=== PATIENT | female | born 2000 | race African-American/Black ===

== ENCOUNTER 2021-07-31 11:10 | Emergency (ER) | payer BC, OTHER ==
[2021-07-31 12:22] LABS: Urine Blood Trace-intact (Negative); Urine Glucose Negative (Negative); Urine Protein Negative (Negative); Urine Specific Gravity >=1.030 (1.005-1.030); Urine pH 5.5 (5.0-7.0)
[2021-07-31 12:36] LABS: Urine Bacteria 20-50 /HPF (<20)
[2021-07-31 12:53] LABS: Absolute Lymphocytes (CBC) 2.2 K/uL (0.7-4.9); Basophils % 1.1 % (0-1.3); Hematocrit 35.7 % (36.0-45.0); Lymphocytes % 43.6 % (15.3-44.8); MPV 7.1 fL (7.6-11.3); RBC Red Blood Cell Count 4.23 M/uL (3.86-4.86)
[2021-07-31 12:58] LABS: ALT/SGPT 23 U/L (12-78); AST/SGOT 10 U/L (15-37); Albumin 3.3 g/dL (3.4-5.0); Alkaline Phosphatase 45 U/L (45-117); BUN Blood Urea Nitrogen 7 mg/dL (7-18); Bicarbonate 26 mmol/L (21-32); Bilirubin Direct < 0.1 mg/dL (0-0.2); Bilirubin Total 0.2 mg/dL (0.2-1.0); Glucose Level 86 mg/dL (74-106); Lipase 137 U/L (73-393); Potassium 3.7 mmol/L (3.5-5.1); Protein, Total 7.8 g/dL (6.4-8.2); Sodium Level 142 mmol/L (136-145)
[2021-07-31 14:02] LABS: Blood Morphology Comment NOTED (NOT SEEN); Ovalocytes 1+; Platelet Estimate INCR
--- NOTE | 2021-07-31 15:55 | RAD REPORT ---
EXAM DESCRIPTION: US - Transvaginal Study Probe - 07/31/2021 3:40 pm CLINICAL HISTORY: lower abdomen pain Pelvic pain. COMPARISON: No comparisons FINDINGS: The uterus is normal in size, shape and echotexture. The uterus measures 8.8 x 4.9 x 4.3 c m. The endometrial stripe measures 15 mm, normal. Both ovaries are normal in size, shape and echotexture. The right ovary measures 3.0 x 2.7 x 1.8 cm. The left ovary measures 2.3 x 2.1 x 1.5 cm. No ovarian or parovarian lesions. No adnexal masses. Normal Doppler blood flow was demonstrated to both ovaries. No significant pelvic ascites. IMPRESSION: Unremarkable study.
[2021-07-31] MEDS ORDERED: AZITHROMYCIN 1 GM PACKET ONE (16:54)
[2021-07-31] MEDS ORDERED: CEFTRIAXONE 1000 MG/VIAL ONE (16:54)
--- NOTE | 2021-07-31 17:13 | ER ---
Nurse's Notes [facility] Name: Renetta Barksdale Age: 21 yrs Sex: Female : 2000 Arrival Date: 07/31/2021 Time: 11:12 Bed 17 Private MD: Diagnosis: Female pelvic inflammatory disease, unspecified Presentation: 07/31 11:32 Chief complaint: Patient states: abd pain that began 4 days ago. Coronavirus screen: ss Client denies travel out of the [place] in the last 14 days. Ebola Screen: Patient denies exposure to infectious person. Patient denies travel to an Ebola-affected area in the 21 days before illness onset. Initial Sepsis Screen: Does the patient meet any 2 criteria? No. Patient's initial sepsis screen is negative. Does the patient have a suspected source of infection? No. Patient's initial sepsis screen is negative. Risk Assessment: Do you want to hurt yourself or someone else? Patient reports no desire to harm self or others. Onset of symptoms was July 27, 2021. 11:32 Method Of Arrival: Ambulatory ss 11:32 Acuity: FADI 3 ss Historical: - Allergies: 11:34 No Known Allergies; ss - PMHx: 11:34 None; ss - PSHx: 11:34 None; ss - Immunization history:: Client reports having NOT received the Covid vaccine. - Social history:: Smoking status: Patient denies any tobacco usage or history of. Screenin:40 Abuse screen: Denies threats or abuse. Denies injuries from another. Nutritional tc5 screening: No deficits noted. Tuberculosis screening: No symptoms or risk factors identified. Fall Risk None identified. Assessment: 17:42 General: Appears in no apparent distress. Behavior is calm, cooperative, appropriate tc5 for age, pt has multiple complaints, main one was sob, states she wants to be checked for std's as well. Vital Signs: 11:32 Pulse 87; Resp 15; Temp 98.6(TE); Pulse Ox 100% on R/A; Weight 74.3 kg; Pain 7/10; ss 17:43 BP 115 / 78; Pulse 80; Resp 14; Pulse Ox 100% ; Pain 0/10; tc5 ED Course: 11:12 Patient arrived in ED. as 11:34 Triage completed. ss 11:34 Arm band placed on right wrist. ss 11:58 Malick Ruffin PA is PHCP. cp 11:58 Malick Knowles MD is Attending Physician. cp 12:13 Urine Microscopic Only Sent. 5 12:16 Lisa Weaver, GENET is Primary Nurse. tc5 12:22 Patient has correct armband on for positive identification. Placed in gown. Bed in low mh5 position. Call light in reach. Warm blanket given. Pulse ox on. NIBP on. 12:23 Urine collected: clean catch specimen, clear. mh5 12:40 Inserted saline lock: 20 gauge in right antecubital area, using aseptic technique. tc5 Blood collected. 13:53 Assist provider with pelvic exam: Set up pelvic tray. Performed by Malick RIBEIRO 5 Specimens sent to lab. Patient tolerated well. swabs to to lab. 13:54 Wet Prep Sent. 5 13:54 GC (Stevan/Chl) Probe CX/URE Sent. mh5 13:55 Manual Differential Sent. mh5 13:55 Urine Culture Sent. mh5 13:55 CBC with Automated Diff Sent. mh5 13:56 Wet Prep Sent. mh5 13:56 Basic Metabolic Panel Sent. mh5 13:56 CBC with Diff Sent. mh5 13:56 Hepatic Function Sent. mh5 13:56 Lipase Sent. mh5 14:11 GC (GONORR/CHLAMYDIA) Probe Sent. mh5 15:40 US Transvaginal Study (Probe) In Process Unspecified. EDCO 17:09 Danielle Peck MD is Referral Physician. cp Administered Medications: 16:25 CANCELLED (Physician Discretion): Rocephin (cefTRIAXone) 250 mg IM once cp 16:33 Drug: Zithromax (azithromycin) 1 grams Route: PO; tc5 17:44 Follow up: Response: No adverse reaction tc5 16:33 Drug: Rocephin (cefTRIAXone) 1 grams Route: IV; Rate: calculated rate; Site: right tc5 antecubital; 17:44 Follow up: Response: No adverse reaction tc Outcome: 17:12 Discharge ordered by . cp 17:45 Patient left the ED. tc5 Signatures: Dispatcher [employer] EDCO Etta Jackson Shelby, RN RN Malick Ruffin PA PA cp Gela Jackson 5 Cassaboom, Lisa, RN RN tc5 Corrections: (The following items were deleted from the chart) 12:41 12:23 CORONAVIRUS+MR.LAB.BRZ drawn and sent. 5 EDCO
--- NOTE | 2021-07-31 17:13 | EDPHYS ---
Physician Documentation [facility] Name: Renetta Barksdale Age: 21 yrs Sex: Female : 2000 Arrival Date: 07/31/2021 Time: 11:12 Bed 17 Private MD: ED Physician Malick Knowles HPI: 07/31 11:29 This 21 yrs old Black Female presents to ER via Unassigned with complaints of r/o cp covid, STD Exposure. 11:30 The patient presents with vaginal discharge, vaginal odor, right lower abdominal pain. cp 11:30 Associated signs and symptoms: Pertinent negatives: constipation, diarrhea, fever, cp vaginal bleeding, vomiting. 11:30 Onset: The symptoms/episode began/occurred 4 day(s) ago. cp 11:30 Patient reports history of lower abdominal pain for past several years. Has seen cp multiple physicians in the past with no definite diagnosis. Patient reports concern for possible STD and requests testing. Would also like COVID-19 test. Denies cough, sore throat. Historical: - Allergies: 11:34 No Known Allergies; ss - PMHx: 11:34 None; ss - PSHx: 11:34 None; ss - Immunization history:: Client reports having NOT received the Covid vaccine. - Social history:: Smoking status: Patient denies any tobacco usage or history of. ROS: 11:30 Abdomen/GI: Positive for abdominal pain. cp 11:30 : Positive for vaginal odor. 11:30 Eyes: Negative for injury, pain, redness, and discharge. cp 11:30 Constitutional: Negative for body aches, chills, fever, poor PO intake. 11:30 ENT: Negative for drainage from ear(s), ear pain, sore throat, difficulty swallowing, difficulty handling secretions. 11:30 Cardiovascular: Negative for chest pain, palpitations. 11:30 Respiratory: Negative for cough, shortness of breath, wheezing. 11:30 Neuro: Negative for altered mental status, headache, weakness. 11:30 All other systems are negative. Exam: 11:29 Head/Face: Normocephalic, atraumatic. cp 11:29 Constitutional: The patient appears in no acute distress, alert, awake, comfortable, non-toxic, well developed, well nourished. 11:29 Abdomen/GI: Inspection: abdomen appears normal, Bowel sounds: active, all quadrants, Palpation: soft, in all quadrants, mild abdominal tenderness, in the right lower quadrant. 14:30 : Pelvic Exam: External exam: is normal, Speculum exam: no bleeding is noted, no cp cervicitis, os that is closed, no tissue in cervix is seen, no tissue in vagina is seen, bimanual exam reveals cervical motion tenderness, no adnexal tenderness on left, right adnexal tenderness, no adnexal mass on right, no adnexal mass on left, discharge, white, the nurse was present for the exam, Sexual behavior: the patient is sexually active. Vital Signs: 11:32 Pulse 87; Resp 15; Temp 98.6(TE); Pulse Ox 100% on R/A; Weight 74.3 kg; Pain 7/10; ss 17:43 BP 115 / 78; Pulse 80; Resp 14; Pulse Ox 100% ; Pain 0/10; tc5 MDM: 11:58 Patient medically screened. theo 13:00 Differential diagnosis: appendicitis, tae infection, cervicitis, ectopic , cp ovarian cyst, pelvic inflammatory disease, urinary tract infection, vaginosis. 17:10 Data reviewed: vital signs, nurses notes, lab test result(s), radiologic studies, cp ultrasound. 17:10 Counseling: I had a detailed discussion with the patient and/or guardian regarding: the cp historical points, exam findings, and any diagnostic results supporting the discharge/admit diagnosis, lab results, radiology results, the need for outpatient follow up, an OB/Gyne specialist, to return to the emergency department if symptoms worsen or persist or if there are any questions or concerns that arise at home. Response to treatment: the patient's symptoms have mildly improved after treatment, and as a result, I will discharge patient. Special discussion: Based on the patient's Hx, exam, and Dx evaluation, there is no indication for emergent surgery or inpatient Tx. It is understood by the patient/guardian that if the Sx's persist or worsen they need to return immediately for re-evaluation. 07/31 12:06 Order name: Basic Metabolic Panel cp 07/31 12:06 Order name: CBC with Diff cp 07/31 12:06 Order name: Hepatic Function cp 07/31 12:06 Order name: Lipase cp 07/31 12:06 Order name: GC (GONORR/CHLAMYDIA) Probe cp 07/31 12:06 Order name: Wet Prep 07/31 12:06 Order name: Urine Microscopic Only; Complete Time: 13:49 07/31 15:34 Interpretation: Normal except: URBC 5-10; UBACT 20-50; SQEPI 5-10. 07/31 12:06 Order name: Basic Metabolic Panel; Complete Time: 13:49 EDMS 07/31 15:34 Interpretation: Normal except: CL 109. 07/31 12:06 Order name: CBC with Automated Diff; Complete Time: 15:33 EDMS 07/31 15:33 Interpretation: Normal except: HGB 11.8; HCT 35.7; MPV 7.1; HOLGER% 35.8; EOSINOPHIL % 7.9. 07/31 12:06 Order name: Liver (Hepatic) Function; Complete Time: 13:49 EDMS 07/31 15:34 Interpretation: Normal except: AST 10; ALB 3.3; GLOB 4.5; A/G 0.7. 07/31 12:06 Order name: Lipase; Complete Time: 13:49 EDMS 07/31 12:06 Order name: GC (Stevan/Chl) Probe CX/URE EDAR 07/31 12:06 Order name: Wet Prep; Complete Time: 15:33 EDMS 07/31 12:06 Order name: IV Saline Lock; Complete Time: 13:56 07/31 12:06 Order name: Labs collected and sent; Complete Time: 13:56 07/31 12:06 Order name: Pelvic Exam Setup; Complete Time: 12:23 07/31 12:06 Order name: Urine Dipstick-Ancillary (obtain specimen); Complete Time: 12:13 07/31 12:06 Order name: Urine Test (obtain specimen); Complete Time: 12:13 07/31 12:21 Order name: Urine Dipstick-Ancillary; Complete Time: 13:49 EDMS 07/31 12:31 Order name: Urine --Ancillary (enter results); Complete Time: 13:49 eb 07/31 12:36 Order name: Urine Culture EDAR 07/31 12:41 Order name: SARS-COV-2 RT PCR; Complete Time: 13:49 EDMS 07/31 13:11 Order name: Manual Differential; Complete Time: 15:33 EDMS 07/31 15:34 Interpretation: Reviewed. cp 07/31 13:49 Order name: US Transvaginal Study (Probe); Complete Time: 16:26 cp Administered Medications: 16:25 CANCELLED (Physician Discretion): Rocephin (cefTRIAXone) 250 mg IM once cp 16:33 Drug: Zithromax (azithromycin) 1 grams Route: PO; tc5 17:44 Follow up: Response: No adverse reaction tc5 16:33 Drug: Rocephin (cefTRIAXone) 1 grams Route: IV; Rate: calculated rate; Site: right tc5 antecubital; 17:44 Follow up: Response: No adverse reaction tc5 Disposition Summary: 07/31/21 17:12 Discharge Ordered Location: Home cp Problem: new cp Symptoms: have improved cp Condition: Stable cp Diagnosis - Female pelvic inflammatory disease, unspecified cp Followup: cp - With: Danielle Peck MD - When: 1 week - Reason: Recheck today's complaints Discharge Instructions: - Discharge Summary Sheet cp - Pelvic Inflammatory Disease cp - Pelvic Pain, Female cp Forms: - Medication Reconciliation Form cp - Thank You Letter cp - Antibiotic Education cp - Prescription Opioid Use cp - Work release form tc5 Prescriptions: - Naprosyn 500 mg Oral Tablet - take 1 tablet by ORAL route 2 times per day take with food; 20 tablet; Refills: cp 0, Product Selection Permitted - Doxycycline Hyclate 100 mg Oral Tablet - take 1 tablet by ORAL route every 12 hours; 20 tablet; Refills: 0, Product cp Selection Permitted - Metronidazole 500 mg Oral Tablet - take 1 tablet by ORAL route every 8 hours; 30 tablet; Refills: 0, Product cp Selection Permitted Addendum: 08/03/2021 10:25 Co-signature as Attending Physician, Malick Knowles MD I agree with the assessment and c [place] plan of care. Signatures: Dispatcher [employer] Malick Davenport MD MD cha Smirch, Shelby RN RN Malick Mckeon PA PA cp Lisa Weaver RN RN tc5 Corrections: (The following items were deleted from the chart) 07/31 12:41 12:06 CORONAVIRUS+LAB.BRZ ordered. EDMS EDMS 16:25 13:49 Rocephin (cefTRIAXone) 250 mg IM once ordered. cp cp
[2021-07-31 18:08] VITALS: TEMP 98.6; O2SAT 100
[2021-07-31 18:09] VITALS: BP 115/78
[2021-08-04 08:13] LABS: C.trachomatis RNA,TMA Detected (Not Detected)
== END 2021-07-31 17:45 | disposition home or self-care (01) ==
LOC: ER 11:10
DX: N73.9 Female pelvic inflammatory disease, unspecified (principal); Z20.822 Contact with and (suspected) exposure to COVID-19
CPT/HCPCS: 87088; 85025; 87086; 80048; 36415; 81025; 80076; 87210; 83690; 87590; 87490; 76830; 96374; 99284; U0003; 81003; 81015

== ENCOUNTER 2021-09-18 10:22 | Emergency (ER) | payer BC, OTHER ==
[2021-09-18 13:07] LABS: SARS-COV-2 RT PCR NEGATIVE (NEGATIVE)
--- NOTE | 2021-09-18 13:22 | EDPHYS ---
Physician Documentation [facility] Name: Renetta Barksdale Age: 21 yrs Sex: Female : 2000 Arrival Date: 09/18/2021 Time: 10:26 Bed DIS1 Private MD: ED Physician Zachariah Ladd HPI: 09/18 10:57 This 21 yrs old Black Female presents to ER via Ambulatory with complaints of Flu pm1 Symptoms. 10:57 The patient or guardian reports cough, flu symptoms, runny nose, body aches. Onset: The pm1 symptoms/episode began/occurred 1 week(s) ago. Severity of symptoms: in the emergency department the symptoms are unchanged. Modifying factors: The symptoms are alleviated by nothing, the symptoms are aggravated by nothing. Associated signs and symptoms: Pertinent positives: diarrhea, rhinorrhea, Pertinent negatives: chest pain, fever, sore throat, vomiting. The patient has not recently seen a physician. 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 - Social history:: Smoking status: Patient denies any tobacco usage or history of. ROS: 10:57 Constitutional: Negative for fever, chills, and weight loss, Cardiovascular: Negative pm1 for chest pain, palpitations, and edema. 10:57 Back: Negative for injury and pain, : Negative for injury, bleeding, discharge, and swelling, MS/Extremity: Negative for injury and deformity, Skin: Negative for injury, rash, and discoloration, Neuro: Negative for headache, weakness, numbness, tingling, and seizure. 10:57 Respiratory: Positive for cough, Negative for shortness of breath. 10:57 Abdomen/GI: Positive for diarrhea, Negative for abdominal pain, nausea and vomiting. 10:57 All other systems are negative. Exam: 10:57 Constitutional: This is a well developed, well nourished patient who is awake, alert, pm1 and in no acute distress. Head/Face: Normocephalic, atraumatic. 10:57 Back: No spinal tenderness. No costovertebral tenderness. Full range of motion. Skin: Warm, dry with normal turgor. Normal color with no rashes, no lesions, and no evidence of cellulitis. MS/ Extremity: Pulses equal, no cyanosis. Neurovascular intact. Full, normal range of motion. 10:57 Cardiovascular: Exam negative for acute changes, Rate: normal, Rhythm: regular, Pulses: no pulse deficits are appreciated, Edema: is not appreciated. 10:57 Respiratory: Exam negative for acute changes, respiratory distress, shortness of breath, Breath sounds: are clear throughout. 10:57 Abdomen/GI: Exam negative for acute changes, Inspection: abdomen appears normal. 10:57 Neuro: Exam negative for acute changes, Motor: is normal, moves all fours, Gait: is steady, at a normal pace, without difficulty. Vital Signs: 10:51 BP 110 / 74; Pulse 100; Resp 15; Temp 98.6(TE); Pulse Ox 100% on R/A; Height 5 ft. 0 ss in. (152.40 cm); Pain 0/10; MDM: 11:01 Data reviewed: vital signs. Data interpreted: Pulse oximetry: on room air is 100 %. pm1 Interpretation: normal. 11:01 Patient medically screened. pm1 13:20 Counseling: I had a detailed discussion with the patient and/or guardian regarding: the pm1 historical points, exam findings, and any diagnostic results supporting the discharge/admit diagnosis, lab results, the need for outpatient follow up, to return to the emergency department if symptoms worsen or persist or if there are any questions or concerns that arise at home. 12 10:57 Order name: COVID-19/FLU A+B (Document "Date of Onset" if Symptomatic); Complete Time: pm1 13:16 12 10:57 Order name: Strep; Complete Time: 13:16 pm1 12 12:23 Order name: Throat Culture EDMS Administered Medications: No medications were administered Disposition: 15:47 Co-signature as Attending Physician, Zachariah Ladd MD I agree with the assessment and kdr plan of care. Disposition Summary: 09/18/21 13:21 Discharge Ordered Location: Home pm1 Problem: new pm1 Symptoms: have improved pm1 Condition: Stable pm1 Diagnosis - Acute upper respiratory infection, unspecified pm1 Followup: pm1 - With: Emergency Department - When: As needed - Reason: Worsening of condition Followup: pm1 - With: Private Physician - When: 2 - 3 days - Reason: Recheck today's complaints, Continuance of care, Re-evaluation by your physician Discharge Instructions: - Discharge Summary Sheet pm1 - Upper Respiratory Infection, Adult pm1 - COVID-19 pm1 - COVID-19: What Your Test Results Mean - [facility] pm1 - COVID-19 Frequently Asked Questions pm1 - 10 Things You Can Do to Manage Your COVID-19 Symptoms at Home - [facility] pm1 - COVID-19: Quarantine vs. Isolation - [facility] pm1 Forms: - Medication Reconciliation Form pm1 - Thank You Letter pm1 - Antibiotic Education pm1 - Prescription Opioid Use pm1 - Work release form [id number] Signatures: Dispatcher [employer] Zachariah Lebron MD MD kdr Smirch, Shelby, RN RN ss Fahad Griggs, EXECUTIVE RELATIONS SPECIALIST EXECUTIVE RELATIONS SPECIALIST pm1
--- NOTE | 2021-09-18 13:22 | ER ---
Nurse's Notes [facility] Name: Renetta Barksdale Age: 21 yrs Sex: Female : 2000 Arrival Date: 09/18/2021 Time: 10:26 Bed DIS1 Private MD: Diagnosis: Acute upper respiratory infection, unspecified Presentation: 09/18 10:51 Chief complaint: Patient states: "I have common cold symptoms. It started last week and ss progressed today. I get mucus in my eyes, runny nose and mild cough." Denies fever. Coronavirus screen: Client denies travel out of the [place] in the last 14 days. Ebola Screen: Patient denies exposure to infectious person. Patient denies travel to an Ebola-affected area in the 21 days before illness onset. Initial Sepsis Screen: Does the patient meet any 2 criteria? No. Patient's initial sepsis screen is negative. Does the patient have a suspected source of infection? No. Patient's initial sepsis screen is negative. Risk Assessment: Do you want to hurt yourself or someone else? Patient reports no desire to harm self or others. Onset of symptoms was September 11, 2021. 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 - Social history:: Smoking status: Patient denies any tobacco usage or history of. Screenin:26 Abuse screen: Denies threats or abuse. Denies injuries from another. Nutritional iw screening: No deficits noted. Tuberculosis screening: No symptoms or risk factors identified. Fall Risk None identified. Assessment: 13:26 General: Appears in no apparent distress. Behavior is calm, cooperative. Pain: Denies iw pain. Neuro: Level of Consciousness is awake, alert, obeys commands, Oriented to person, place, time, situation, Moves all extremities. Full function. Cardiovascular: Patient's skin is warm and dry. Respiratory: Reports cough that is Respiratory effort is even, unlabored, Respiratory pattern is regular, symmetrical. Derm: Skin is intact, is healthy with good turgor. Musculoskeletal: Range of motion: intact in all extremities. Vital Signs: 10:51 BP 110 / 74; Pulse 100; Resp 15; Temp 98.6(TE); Pulse Ox 100% on R/A; Height 5 ft. 0 ss in. (152.40 cm); Pain 0/10; ED Course: 10:26 Patient arrived in ED. kc5 10:53 Triage completed. ss 10:53 Arm band placed on right wrist. ss 10:56 Fahad Griggs NP is PHCP. pm1 10:56 Zachariah Ladd MD is Attending Physician. pm1 13:17 Jacquelyn Rutherford RN is Primary Nurse. iw 13:26 Patient has correct armband on for positive identification. iw 13:26 No provider procedures requiring assistance completed. Patient did not have IV access iw during this emergency room visit. Administered Medications: No medications were administered Outcome: 13:21 Discharge ordered by MD. pm1 13:34 Discharged to home ambulatory. iw 13:34 Condition: good 13:34 Discharge instructions given to patient, Instructed on discharge instructions, follow up and referral plans. Demonstrated understanding of instructions, follow-up care. 13:35 Patient left the ED. iw Signatures: Jacquelyn Rutherford, GENET DE LEÓN Davida Daniels RN RN Fahad Griggs NP MANAGER FACILITY pm1 Osiris Taylor kc5
[2021-09-18 13:58] VITALS: BP 110/74; TEMP 98.6; O2SAT 100
== END 2021-09-18 13:35 | disposition home or self-care (01) ==
LOC: ER 10:22
DX: J06.9 Acute upper respiratory infection, unspecified (principal); Z20.822 Contact with and (suspected) exposure to COVID-19
CPT/HCPCS: 87070; 87081; 0240U; 99281

== ENCOUNTER 2021-10-24 11:23 | Emergency (ER) | payer BC, OTHER ==
[2021-10-24 12:10] LABS: Absolute Lymphocytes (CBC) 1.7 K/uL (0.7-4.9); Hematocrit 36.2 % (36.0-45.0); Lymphocytes % 36.3 % (15.3-44.8); MPV 6.6 fL (7.6-11.3); RBC Red Blood Cell Count 4.25 M/uL (3.86-4.86)
[2021-10-24 12:16] LABS: Urine Blood Negative (Negative); Urine Glucose Negative (Negative); Urine Protein Trace (Negative); Urine Specific Gravity 1.025 (1.005-1.030)
[2021-10-24 12:59] LABS: BUN Blood Urea Nitrogen 8 mg/dL (7-18); Bicarbonate 24 mmol/L (21-32); Glucose Level 88 mg/dL (74-106); HCG, Quantitative 70703 mIU/mL (1-3); Potassium 3.6 mmol/L (3.5-5.1); Sodium Level 137 mmol/L (136-145)
[2021-10-24 13:15] LABS: Urine Bacteria <20 /HPF (<20); Urine RBC <5 /HPF (NONE SEEN)
--- NOTE | 2021-10-24 13:29 | EDPHYS ---
Physician Documentation [facility] Name: Renetta Barksdale Age: 21 yrs Sex: Female : 2000 Arrival Date: 10/24/2021 Time: 11:27 Bed 12 Private MD: ED Physician Malick Knowles HPI: 10/24 12:05 This 21 yrs old Black Female presents to ER via EMS with complaints of Vaginal bleeding.pm1 12:05 The patient presents with vaginal bleeding that is with possible tissue yesterday. pm1 Onset: The symptoms/episode began/occurred 3 day(s) ago. Modifying factors: the symptoms are aggravated by possibly from pap smear and ultrasound at OB visit about one week ago. Associated signs and symptoms: Pertinent positives: cramping, Pertinent negatives: diarrhea, dysuria, fever, nausea, vomiting. Severity of symptoms: in the emergency department the symptoms have improved. The patient is sexually active. The patient has been recently seen by a physician: OB at [facility] system last week and had ultrasound and papsmear. 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 - Social history:: Smoking status: unknown Patient/guardian denies using alcohol, street drugs, IV drugs. ROS: 12:05 Positive for vaginal bleeding, vaginal discharge, Negative for hematuria, burning pm1 with urination. 12:05 Constitutional: Negative for fever, chills, and weight loss, Cardiovascular: Negative for chest pain, palpitations, and edema, Respiratory: Negative for shortness of breath, cough, wheezing, and pleuritic chest pain, Abdomen/GI: Negative for abdominal pain, nausea, vomiting, diarrhea, and constipation, Back: Negative for injury and pain, MS/Extremity: Negative for injury and deformity, Skin: Negative for injury, rash, and discoloration, Neuro: Negative for headache, weakness, numbness, tingling, and seizure. 12:05 All other systems are negative. Exam: 12:05 Constitutional: This is a well developed, well nourished patient who is awake, alert, pm1 and in no acute distress. Head/Face: Normocephalic, atraumatic. 12:05 Back: No spinal tenderness. No costovertebral tenderness. Full range of motion. Skin: Warm, dry with normal turgor. Normal color with no rashes, no lesions, and no evidence of cellulitis. MS/ Extremity: Pulses equal, no cyanosis. Neurovascular intact. Full, normal range of motion. 12:05 Eyes: Exam is negative for acute changes, Extraocular movements: intact throughout, Conjunctiva: no acute changes, no injection. 12:05 ENT: Exam is negative for acute changes, Mouth: Lips: normal, moist, Oral mucosa: normal, pink and intact, moist. 12:05 Cardiovascular: Exam negative for acute changes, Rate: normal, Rhythm: regular, Pulses: no pulse deficits are appreciated. 12:05 Respiratory: Exam negative for acute changes, respiratory distress, shortness of breath. 12:05 Abdomen/GI: Inspection: abdomen appears normal, Palpation: abdomen is soft and non-tender, in all quadrants. 12:05 Neuro: Exam negative for acute changes, Orientation: is normal, Motor: is normal, moves all fours. Vital Signs: 11:30 BP 112 / 63; Pulse 83; Resp 16; Temp 96.8(O); Pulse Ox 99% on R/A; Weight 76.2 kg; ab2 Height 5 ft. (152.40 cm); Pain 0/10; 13:03 BP 124 / 76; Pulse 89; Resp 16; Pulse Ox 100% on R/A; Pain 0/10; ab2 11:30 Body Mass Index 32.81 (76.20 kg, 152.40 cm) ab2 MDM: 11:29 Patient medically screened. pm1 12:05 Data reviewed: vital signs. Data interpreted: Pulse oximetry: on room air is 99 %. pm1 Interpretation: normal. 12:05 ED course: Patient with photo on her phone of her IUP and vaginal bleeding with what pm1 appears to be tissue. 13:26 Refusal of service: The patient/guardian displays adequate decision making capability pm1 and despite a detailed discussion of alternatives, benefits, risks, and consequences refuses: pelvic examination due to fear that it caused her vaginal bleeding and fear of possible miscarriage. Will treat the patient for gonorrhea and chlamydia with antibiotics. 13:28 Counseling: I had a detailed discussion with the patient and/or guardian regarding: the pm1 historical points, exam findings, and any diagnostic results supporting the discharge/admit diagnosis, lab results, radiology results, the need for outpatient follow up, an OB/Gyne specialist. 13:31 ED course: Discussed with attending and plan of care is pending urine culture for pm1 antibiotics. 10/24 11:39 Order name: Abo/rh Typing pm1 10/24 11:39 Order name: Basic Metabolic Panel; Complete Time: 13:17 pm10/24 11:39 Order name: CBC with Diff; Complete Time: 12:40 pm10/24 11:39 Order name: Quantitative Hcg; Complete Time: 13:17 pm10/24 11:39 Order name: Urine Microscopic Only; Complete Time: 13:17 pm10/24 11:39 Order name: ABO/RH typing; Complete Time: 13:17 EDMS 10/24 11:39 Order name: IV Saline Lock; Complete Time: 12:02 pm10/24 11:39 Order name: US Transvaginal Ob; Complete Time: 16:37 pm10/24 12:16 Order name: Urine Dipstick-Ancillary; Complete Time: 12:18 EDMS 10/24 13:16 Order name: Urine Culture EDWY 10/24 11:39 Order name: Labs collected and sent; Complete Time: 12:02 pm10/24 11:39 Order name: NPO; Complete Time: 12:02 pm10/24 11:39 Order name: Urine Dipstick-Ancillary (obtain specimen); Complete Time: 12:17 pm10/24 11:39 Order name: Urine Test (obtain specimen); Complete Time: 12:17 pm10/24 12:42 Order name: Pelvic Exam Setup pm1 Administered Medications: 13:36 Drug: Rocephin (cefTRIAXone) 1 grams Route: IV; Rate: calculated rate; Site: right ab2 antecubital; 13:43 Follow up: Response: No adverse reaction ab2 13:37 Drug: AZITHromycin 1 grams Route: PO; ab2 13:43 Follow up: Response: No adverse reaction ab2 Point of Care Testing: Urine : 12:17 hCG Reading: Positive; Control Reading: Positive; ab2 Disposition Summary: 10/24/21 13:28 Discharge Ordered Location: Home pm1 Problem: new pm1 Symptoms: have improved pm1 Condition: Stable pm1 Diagnosis - Threatened pm1 Followup: pm1 - With: Emergency Department - When: As needed - Reason: Worsening of condition Followup: pm1 - With: Private Physician - When: 2 - 3 days - Reason: Recheck today's complaints, Continuance of care, Re-evaluation by your physician Discharge Instructions: - Discharge Summary Sheet pm1 - Threatened Miscarriage pm1 Forms: - Medication Reconciliation Form pm1 - Thank You Letter pm1 - Antibiotic Education pm1 - Prescription Opioid Use pm1 Addendum: 10/25/2021 18:40 Co-signature as Attending Physician, Malick Knowles MD I agree with the assessment and c balbuena plan of care. Signatures: Dispatcher [employer] EDMalick Guajardo MD MD cha Marinas, Patrick, MEDICAL RECORDS TECH MEDICAL RECORDS TECH pm1 Marcos Frey2
--- NOTE | 2021-10-24 13:29 | ER ---
Nurse's Notes [facility] Name: Renetta Barksdale Age: 21 yrs Sex: Female : 2000 Arrival Date: 10/24/2021 Time: 11:27 Bed 12 Private MD: Diagnosis: Threatened Presentation: 10/24 11:30 Chief complaint: Patient states: Pt states, "I came today because I am 7 weeks and 3 ab2 days and I had green vaginal discharge and light vaginal bleeding and I was scared." Pt states this is her third . Pt states she saw a OBGYN at [facility]. Pt denies abdominal cramping. Chief complaint:. Coronavirus screen: Vaccine status: Patient reports being unvaccinated. Client denies travel out of the [place] in the last 14 days. At this time, the client does not indicate any symptoms associated with coronavirus-19. Ebola Screen: Patient negative for fever greater than or equal to 101.5 degrees Fahrenheit, and additional compatible Ebola Virus Disease symptoms Patient denies exposure to infectious person. Patient denies travel to an Ebola-affected area in the 21 days before illness onset. No symptoms or risks identified at this time. Initial Sepsis Screen: Does the patient meet any 2 criteria? No. Patient's initial sepsis screen is negative. Does the patient have a suspected source of infection? No. Patient's initial sepsis screen is negative. Risk Assessment: Do you want to hurt yourself or someone else? Patient reports no desire to harm self or others. Onset of symptoms is unknown. 11:30 Method Of Arrival: EMS: [facility] ab2 11:30 Acuity: FADI 4 ab2 Triage Assessment: 11:35 General: Appears in no apparent distress. comfortable, Behavior is calm, cooperative, ab2 appropriate for age. Pain: Denies pain. EENT: No deficits noted. No signs and/or symptoms were reported regarding the EENT system. Neuro: No deficits noted. 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 Gait is steady, Speech is normal, Facial symmetry appears normal. Cardiovascular: No deficits noted. Denies chest pain, shortness of breath, Heart tones S1 S2 present Patient's skin is warm and dry. Chest pain is denied. Respiratory: No deficits noted. Airway is patent Breath sounds are clear. GI: No deficits noted. No signs and/or symptoms were reported involving the gastrointestinal system. Abdomen is round non-distended, Abd is soft and non tender Reports vaginal bleeding. : No deficits noted. No signs and/or symptoms were reported regarding the genitourinary system. Reports vaginal bleeding that is bright red, with clots. Derm: No deficits noted. No signs and/or symptoms reported regarding the dermatologic system. Musculoskeletal: No deficits noted. 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 - Social history:: Smoking status: unknown Patient/guardian denies using alcohol, street drugs, IV drugs. Screenin:35 Abuse screen: Denies threats or abuse. Denies injuries from another. Nutritional ab2 screening: No deficits noted. Tuberculosis screening: No symptoms or risk factors identified. Fall Risk None identified. Assessment: 11:38 Reassessment: Patient appears in no apparent distress at this time. See triage ab2 asssessment. 13:03 Reassessment: No changes from previously documented assessment. ab2 Vital Signs: 11:30 BP 112 / 63; Pulse 83; Resp 16; Temp 96.8(O); Pulse Ox 99% on R/A; Weight 76.2 kg; ab2 Height 5 ft. (152.40 cm); Pain 0/10; 13:03 BP 124 / 76; Pulse 89; Resp 16; Pulse Ox 100% on R/A; Pain 0/10; ab2 11:30 Body Mass Index 32.81 (76.20 kg, 152.40 cm) ab2 ED Course: 11:27 Patient arrived in ED. mh5 11:28 Fahad Griggs NP is PHCP. pm1 11:28 Malick Knowles MD is Attending Physician. pm1 11:30 Marcos Frey is Primary Nurse. ab2 11:35 Triage completed. ab2 11:38 Arm band placed on right wrist. ab2 11:38 Patient has correct armband on for positive identification. Bed in low position. Call ab2 light in reach. Side rails up X2. 11:38 No provider procedures requiring assistance completed. ab2 11:51 Diet: Patient is NPO. mh5 12:02 ABO/RH typing Sent. ab2 12:02 Abo/rh Typing Sent. ab2 12:02 Basic Metabolic Panel Sent. ab2 12:02 CBC with Diff Sent. ab2 12:02 Quantitative Hcg Sent. ab2 12:02 Inserted saline lock: 18 gauge in right antecubital area, using aseptic technique. ab2 Blood collected. 12:17 Urine Microscopic Only Sent. ab2 12:58 US Transvaginal Ob In Process Unspecified. EDMS 13:43 IV discontinued, intact, bleeding controlled, No redness/swelling at site. Pressure ab2 dressing applied. Administered Medications: 13:36 Drug: Rocephin (cefTRIAXone) 1 grams Route: IV; Rate: calculated rate; Site: right ab2 antecubital; 13:43 Follow up: Response: No adverse reaction ab2 13:37 Drug: AZITHromycin 1 grams Route: PO; ab2 13:43 Follow up: Response: No adverse reaction ab2 Point of Care Testing: Urine : 12:17 hCG Reading: Positive; Control Reading: Positive; ab2 Outcome: 13:28 Discharge ordered by MD. pm1 13:42 Discharged to home ambulatory. ab2 13:42 Condition: good 13:42 Discharge instructions given to patient, Instructed on discharge instructions, follow up and referral plans. Demonstrated understanding of instructions, follow-up care. 13:43 Patient left the ED. ab2 Signatures: Dispatcher [employer] EDVA Fahad Griggs NP DATA WAREHOUSE CONSULTANT pm1 Gela Jackson [facility] Marcos Frey ab2
[2021-10-24] MEDS ORDERED: AZITHROMYCIN 250 MG TAB ONE (13:34)
[2021-10-24] MEDS ORDERED: CEFTRIAXONE 1000 MG/VIAL ONE (13:34)
--- NOTE | 2021-10-24 13:35 | RAD REPORT ---
EXAM DESCRIPTION: US - Transvaginal OB - 10/24/2021 12:58 pm CLINICAL HISTORY: VAGINAL BLEEDING COMPARISON: No comparisons FINDINGS: Single IUP identified with positive heart tones. The crown-rump length measures 13 m illimeters which is consistent with 7 weeks 4 days. heart rate estimated at 173 beats/minute. T he left ovary volume is 13.6 cc. The right ovary is not visualized. Trace free fluid. Small subchorio opal hemorrhage measuring less than 25% of the gestational sac. IMPRESSION: Single viable IUP with positive heart tones. Small subchorionic hemorrhage, typica lly of little significance. The fetus measures 7 weeks 4 days with estimated date of delivery of 05/12.
[2021-10-24 14:05] VITALS: BP 124/76; TEMP 96.8; O2SAT 100
== END 2021-10-24 13:43 | disposition home or self-care (01) ==
LOC: ER 11:23
DX: O20.0 Threatened abortion (principal); Z3A.01 Less than 8 weeks gestation of pregnancy
CPT/HCPCS: 36415; 76817; 80048; 81003; 81015; 84702; 85025; 86900; 86901; 87086; 87088; 96374; 99284

== ENCOUNTER 2022-05-07 10:33 | Emergency (ER) | payer OTHER, BC ==
--- NOTE | 2022-05-07 13:01 | EDPHYS ---
Physician Documentation [facility] Name: Renetta Barksdale Age: 21 yrs Sex: Female : 2000 Arrival Date: 05/07/2022 Time: 10:38 Bed Waiting Private MD: ED Physician Malick Knowles HPI: 05/07 11:15 This 21 yrs old Black Female presents to ER via Ambulatory with complaints of Needs jh7 Covid Test. 11:15 Onset: The symptoms/episode began/occurred 10 day(s) ago. Associated signs and jh7 symptoms: Pertinent positives: diarrhea, headache, Body aches. Patient presents with diarrhea, headache, and body aches for the past 10 days. States that she has been exposed to COVID multiple times. Denies any fever. Patient is 35 weeks .. Historical: - Allergies: 11:13 No Known Allergies; iw - PMHx: 11:13 Bipolar disorder; depressive disorder; iw - Immunization history:: Adult Immunizations unknown. - Social history:: Smoking status: Patient denies any tobacco usage or history of. ROS: 11:15 Eyes: Negative for injury, pain, redness, and discharge, ENT: Negative for injury, jh7 pain, and discharge, Cardiovascular: Negative for chest pain, palpitations, and edema, Respiratory: Negative for shortness of breath, cough, wheezing, and pleuritic chest pain, Back: Negative for injury and pain, Skin: Negative for injury, rash, and discoloration. 11:15 Constitutional: Positive for body aches, Negative for fever. 11:15 Abdomen/GI: Positive for diarrhea, Negative for abdominal pain, nausea, vomiting. 11:15 Neuro: Positive for headache, Negative for dizziness, syncope. 11:15 All other systems are negative. Exam: 11:15 Constitutional: This is a well developed, well nourished patient who is awake, alert, jh7 and in no acute distress. ENT: Nares patent. No nasal discharge, no septal abnormalities noted. Tympanic membranes are normal and external auditory canals are clear. Oropharynx with no redness, swelling, or masses, exudates, or evidence of obstruction, uvula midline. Mucous membranes moist. Neck: Trachea midline, no thyromegaly or masses palpated, and no cervical lymphadenopathy. Supple, full range of motion without nuchal rigidity, or vertebral point tenderness. No Meningismus. Cardiovascular: Regular rate and rhythm with a normal S1 and S2. No gallops, murmurs, or rubs. Normal PMI, no JVD. No pulse deficits. Respiratory: Lungs have equal breath sounds bilaterally, clear to auscultation and percussion. No rales, rhonchi or wheezes noted. No increased work of breathing, no retractions or nasal flaring. Abdomen/GI: Soft, non-tender, with normal bowel sounds. No distension or tympany. No guarding or rebound. No evidence of tenderness throughout. Back: No spinal tenderness. No costovertebral tenderness. Full range of motion. Skin: Warm, dry with normal turgor. Normal color with no rashes, no lesions, and no evidence of cellulitis. Neuro: Awake and alert, GCS 15, oriented to person, place, time, and situation. Motor strength 5/5 in all extremities. Sensory grossly intact. Normal gait. Vital Signs: 11:13 BP 106 / 80; Pulse 82; Resp 16; Temp 98.4; Pulse Ox 97% on R/A; iw MDM: 13:00 Patient medically screened. [facility] 14:38 Differential diagnosis: viral Infection. Data reviewed: vital signs, nurses notes. Data [facility] interpreted: Pulse oximetry: is 97 %. Interpretation: normal. Counseling: I had a detailed discussion with the patient and/or guardian regarding: the historical points, exam findings, and any diagnostic results supporting the discharge/admit diagnosis, to return to the emergency department if symptoms worsen or persist or if there are any questions or concerns that arise at home. 05/07 11:15 Order name: SARS-COV-2 RT PCR (Document "Date of Onset" if Symptomatic); Complete Time: 12:59 Administered Medications: No medications were administered Disposition Summary: 05/07/22 13:00 Discharge Ordered Location: Home [facility] Problem: new [facility] Symptoms: have improved [facility] Condition: Stable [facility] Diagnosis - Other specified viral diseases [facility] Followup: [facility] - With: Private Physician - When: 2 - 3 days - Reason: Recheck today's complaints Discharge Instructions: - Discharge Summary Sheet [facility] - Viral Respiratory Infection [facility] Forms: - Medication Reconciliation Form [facility] - Thank You Letter [facility] - Work release form Signatures: Dispatcher [employer] Jacquelyn Christianson RN RN iw July Ware, INSIDE SALES PROFESSIONAL INSIDE SALES PROFESSIONAL jh7
--- NOTE | 2022-05-07 13:01 | ER ---
Nurse's Notes [facility] Name: Renetta Barksdale Age: 21 yrs Sex: Female : 2000 Arrival Date: 05/07/2022 Time: 10:38 Bed Waiting Private MD: Diagnosis: Other specified viral diseases Presentation: 05/07 11:12 Chief complaint: Patient states: is having diarrhea , headaches, body aches, is 35 iw weeks , I work at [employer] and someone had COVID. Coronavirus screen: Client presents with at least one sign or symptom that may indicate coronavirus-19. Ebola Screen: Patient negative for fever greater than or equal to 101.5 degrees Fahrenheit, and additional compatible Ebola Virus Disease symptoms Patient denies exposure to infectious person. Patient denies travel to an Ebola-affected area in the 21 days before illness onset. No symptoms or risks identified at this time. Initial Sepsis Screen: Does the patient meet any 2 criteria? No. Patient's initial sepsis screen is negative. Does the patient have a suspected source of infection? No. Patient's initial sepsis screen is negative. Risk Assessment: Do you want to hurt yourself or someone else? Patient reports no desire to harm self or others. 11:12 Method Of Arrival: Ambulatory iw 11:12 Acuity: FADI 4 iw 11:13 Onset of symptoms was April 30, 2022. iw Triage Assessment: 13:50 General: Appears in no apparent distress. Behavior is calm, cooperative. iw Historical: - Allergies: 11:13 No Known Allergies; iw - PMHx: 11:13 Bipolar disorder; depressive disorder; iw - Immunization history:: Adult Immunizations unknown. - Social history:: Smoking status: Patient denies any tobacco usage or history of. Screenin:14 Abuse screen: Denies threats or abuse. Denies injuries from another. Nutritional iw screening: No deficits noted. Tuberculosis screening: No symptoms or risk factors identified. Fall Risk None identified. Ambulatory Aid-. Assessment: 11:15 General: Appears in no apparent distress. Behavior is calm, cooperative. Pain: Denies iw pain. Neuro: Level of Consciousness is awake, alert, obeys commands, Oriented to person, place, time, situation, Moves all extremities. Full function. Cardiovascular: Patient's skin is warm and dry. Respiratory: Respiratory effort is even, unlabored, Respiratory pattern is regular, symmetrical. Derm: Skin is intact, is healthy with good turgor. Musculoskeletal: Range of motion: intact in all extremities. Vital Signs: 11:13 BP 106 / 80; Pulse 82; Resp 16; Temp 98.4; Pulse Ox 97% on R/A; iw ED Course: 10:38 Patient arrived in ED. rg4 10:41 July Ware [facility] jh7 10:41 Malick Knowles MD is Attending Physician. jh7 11:13 Triage completed. iw 11:13 Arm band placed on. iw 11:14 No provider procedures requiring assistance completed. Patient did not have IV access iw during this emergency room visit. 11:15 Patient has correct armband on for positive identification. iw 11:23 Jacquelyn Rutherford, RN is Primary Nurse. iw Administered Medications: No medications were administered Medication: 11:30 VIS not applicable for this client. iw Outcome: 13:00 Discharge ordered by . [facility] 13:50 Discharged to home ambulatory. iw 13:50 Condition: good 13:50 Discharge instructions given to patient. 13:51 Patient left the ED. iw Signatures: Jacquelyn Rutherford, RN RN Ally Ann rg4 July Ware FNP GUEST RELATIONS OFFICER [facility]
[2022-05-07 14:00] VITALS: BP 106/80; TEMP 98.4; O2SAT 97
== END 2022-05-07 13:51 | disposition home or self-care (01) ==
LOC: ER 10:33
DX: B33.8 Other specified viral diseases (principal); Z20.822 Contact with and (suspected) exposure to COVID-19
CPT/HCPCS: 99281; U0003